=== PATIENT | female | born 1975 | race American Indian/Alaskan Native ===

== ENCOUNTER 2018-02-09 06:10 | Observation (INO) | payer OTHER ==
--- NOTE | 2018-02-07 12:18 | Anesthesia Consultation ---
Anesthesia Consult and Med Hx Date of service: 02/07/18 - Airway Anesthetic Teeth Evaluation: Good ROM Head & Neck: Adequate Mental/Hyoid Distance: Adequate Mallampati Class: Class I Intubation Access Assessment: Good - Pulmonary Exam CTA: Yes - Cardiac Exam Cardiac Exam: RRR - Pre-Operative Health Status ASA Pre-Surgery Classification: ASA2 Proposed Anesthetic Plan: General - Central Nervous System Hx Psychiatric Problems: No - Hematic Hx Anemia: Yes - Other Systems Hx Cancer: No
[2018-02-07 12:24] LABS: Basophils % (Auto) 0.4 % (0.0-1.8); Eosinophils % (Auto) 0.4 % (0.0-4.3); Hematocrit 33.4 % (30.3-42.9); Hemoglobin 10.2 gm/dl (10.1-14.3); Lymphocytes # (Auto) 1.7 K/mm3 (1.2-5.4); Lymphocytes % (Auto) 32.3 % (13.4-35.0); Mean Corpuscular HGB Conc 31 % (30-34); Mean Corpuscular Hemoglobin 21 pg (28-32); Mean Corpuscular Volume 69 fl (79-97); Monocytes # (Auto) 0.2 K/mm3 (0.0-0.8); Monocytes % (Auto) 4.7 % (0.0-7.3); Platelet Count 234 K/mm3 (140-440); Red Blood Count 4.88 M/mm3 (3.65-5.03); Red Cell Distribution Width 22.2 % (13.2-15.2)
[~2018-02-09 06:10] MED LIST: MARCAINE 0.5% INFILTRATI NR; VERSED IV NR; XYLOCAINE 1% 20 mL INFILTRATI NR
--- NOTE | 2018-02-09 06:20 | History and Physical Report ---
History of Present Illness Date of examination: 02/09/18 Date of admission: 02/09/2018 Chief complaint: heavy menses History of present illness: 42y/o with symptomatic uterine fibroids and dysfunctional uterine bleeding.Pelvic ultrasound demonstrated a 6.5cm myoma. She reports heavy menses with clots and pain. She has elected to undergo definitive surgical management. Past History Past Medical History: other (fibroids; anxiety) Past Surgical History: other (laparoscopy for ectopic ) - Obstetrical History : 7 Para: 1 Hx # Term Pregnancies: 1 Number of Pregnancies: 0 Spontaneous Abortions: 3 Induced : 3 Number of Living Children: 1 Medications and Allergies Allergies Allergy/AdvReac Type Severity Reaction Status Date / Time No Known Allergies Allergy Unverified 02/02/18 14:29 Home Medications Medication Instructions Recorded Confirmed Last Taken Type No Known Home Medications [No 02/02/18 02/02/18 Unknown History Reported Home Medications] Active Meds: Active Medications Bupivacaine HCl (Marcaine 0.5%) 20 ml INFILTRATI PREOP NR Stop: 02/09/18 23:59 Lactated Ringer's (Lactated Ringers) 1,000 mls @ 100 mls/hr IV DIRECT HAIR Cefazolin Sodium (Ancef/Sterile Water 2 Gm/20 Ml) 2 gm in 20 mls @ 80 mls/hr IV PREOP HAIR; Protocol Lidocaine (Xylocaine 1% 20 Ml) 10 ml INFILTRATI PREOP NR Stop: 02/09/18 23:59 Midazolam HCl (Versed) 2 mg IV PREOP NR Stop: 02/09/18 23:59 Review of Systems All systems: negative Genitourinary: vaginal bleeding, pelvic pain - Vital Signs Vital signs: Vital Signs Temp Pulse Resp BP 99.1 F 60 18 110/78 02/07/18 11:50 02/07/18 11:50 02/07/18 11:50 02/07/18 11:50 Temp Pulse Resp BP Pulse Ox 99.1 F 60 18 110/78 02/07/18 11:50 02/07/18 11:50 02/07/18 11:50 02/07/18 11:50 - Physical Exam Breasts: Positive: deferred Cardiovascular: Regular rate Lungs: Positive: Clear to auscultation Abdomen: Positive: normal appearance Results Result Diagrams: 02/07/18 11:55 All other labs normal. Assessment and Plan - Patient Problems (1) Leiomyoma Current Visit: Yes Status: Acute Plan to address problem: scheduled for a robotic hysterectomy (2) DUB (dysfunctional uterine bleeding) Current Visit: Yes Status: Acute
[2018-02-09] MEDS ORDERED: NACL BACTERIOSTATIC INFILTRATI ONE (06:30)
[2018-02-09] MEDS: LACTATED RINGERS 1,000 ML IV SCH ×2 (06:51→15:08)
[2018-02-09] MEDS ORDERED: ANCEF/STERILE WATER 2 GM/20 ML 2 GM/20 ML SYRINGE IV SCH (07:00)
[2018-02-09] MEDS ORDERED: NEOSPORIN GU IR ONE ×2 (07:27→09:00)
[2018-02-09] MEDS ORDERED: GELFOAM POWDER 1GM MM ONE ×2 (07:33→09:01)
[2018-02-09] MEDS ORDERED: THROMBIN (BOVINE) TP ONE ×2 (07:33→09:01)
[2018-02-09] MEDS ORDERED: XYLOCAINE MPF 2% ONE (07:42)
[2018-02-09] MEDS ORDERED: ZEMURON IV ONE ×2 (07:42→09:25)
[2018-02-09] MEDS ORDERED: DILAUDID ONE ×2 (07:44→10:21)
[2018-02-09] MEDS ORDERED: DIPRIVAN 10 MG/ML IV ONE (07:44)
[2018-02-09] MEDS ORDERED: MARCAINE 0.5% 30 ML INFILTRATI ONE (07:53)
[2018-02-09] MEDS ORDERED: TRANSDERM-SCOP TD NR (08:00)
[2018-02-09] MEDS ORDERED: PEPCID IV NR (08:00)
[2018-02-09] MEDS ORDERED: NEO SYNEPHRINE/NS Syringe(OR USE) IV ONE (08:18)
[2018-02-09] MEDS ORDERED: ZOFRAN ONE (08:59)
[2018-02-09] MEDS ORDERED: DECADRON ONE (08:59)
[2018-02-09] MEDS ORDERED: MARCAINE 0.5% INFILTRATI ONE (09:00)
[2018-02-09] MEDS ORDERED: NACL 0.9% IR ONE ×2 (09:00)
[2018-02-09] MEDS ORDERED: LACTATED RINGERS 1,000 ML ONE (09:02)
[2018-02-09] MEDS ORDERED: ROBINUL ONE (09:29)
--- NOTE | 2018-02-09 10:00 | Operative Report ---
Operative Report Operative Report: Date of surgery: 02/09/2018 Preoperative diagnoses: Symptomatic uterine fibroids; dysfunctional uterine bleeding Postoperative diagnoses: Same as above Procedure: Robotic hysterectomy; bilateral salpingectomy Surgeon: Sweta Pugh M.D. Drum Reel Cutter: David Mazariegos Anesthesia: Gen. endotracheal anesthesia Estimated blood loss: 50 mL Pathology: Uterus, cervix, leiomyoma, tubes Indication: 42-year-old with a history of symptomatic uterine fibroids and dysfunctional uterine bleeding. Undergo definitive surgical management Procedure: The patient was taken to the operating room and given general endotracheal anesthesia without complication. She is prepped and draped in a normal sterile fashion. A bivalve speculum was placed in the patient's vagina and a single- tooth tenaculum placed on the anterior lip of the cervix. The uterus was sounded with the uterine sound. A [employer] uterine manipulator was placed in the bivalve speculum was then removed. Attention was then turned to the patient's abdomen where a millimeter supra umbilical skin incision was then made. A Veress needle was placed and peritoneal entry was verified water-filled syringe. Insufflation of the peritoneal cavity was performed with CO2 gas. The 12 mm trocar was then placed under direct visualization. An additional 8 mm trocar was placed on the patient's left and right lateral side just opposite of the supraumbilical trocar. An additional 5 mm right lateral trocar was then placed as the accessory port. The patient was then placed in steep Trendelenburg. The da Yan robot was then engaged. A fenestrated forcep was placed in arm 2 and a vessel sealer was placed in arm 1. The surgeon then transferred to the surgical console. General survey revealed an enlarge fibroid uterus. A portion of the right fallopian tube was surgically removed. The left fallopian tube was normal along with the ovaries. The mesosalpinx was then isolated on the right. The vessel sealer was used to coagulate the mesosalpinx which was then transected. The tube was transected from the ovary. The tubo-ovarian ligament was then coagulated and transected. The round ligament was then coagulated and transected also. The vesicouterine peritoneum was then entered from the patient's right side. The uterine vessels were then coagulated with the vessel sealer. The vessels were then transected . Attention was then turned to the patient's left side where the tubo-ovarian ligament and mesosalpinx were again isolated coagulated and transected. The vesical peritoneum was then entered from the left and joined in the midline. Peritoneum was reflected off of the lower uterine segment. Uterine vessels were then coagulated and then transected. A myomectomy had to be performed in order to decompress the uterus. An incision was made in the serosa. The leiomyoma was then grasped with a tenaculum. The leiomyoma was excised with the monopolar scissors. The uterus had to be further bivalved and a portion of the uterus to facilitate decompression. The blood supply to the uterus was adequately contained, a posterior colpotomy was made. The V care ring was visualized. Posterior colpotomy was created with the monopolar scissors. The incision was continued circumferentially until anterior colpotomy was made. The cervix and uterus were amputated from the vaginal cuff. The uterus was then removed along with the tubes bilaterally, and the leiomyoma through the vagina and a warm laparotomy sponge was placed and maintain the pneumoperitoneum. The vaginal cuff was then closed in a running fashion with V lock suture. Irrigation of the pelvis was performed. Gelfoam with thrombin was applied to the incision. The supraumbilical 12 mm trocar site was closed with the Piter Olmos device. The skin was then reapproximated with 4-0 Monocryl. The tissue was sent to pathology which included the cervix and uterus. The patient was then successfully extubated. She was then taken to the recovery room in stable condition. All sponge laps and needle counts were correct x2.
[2018-02-09] MEDS ORDERED: NARCAN 0.4 MG/1 ML IV PRN (10:04)
[2018-02-09] MEDS ORDERED: PERCOCET 5/325 PO PRN (10:06)
[2018-02-09] MEDS ORDERED: ZOFRAN IV PRN (10:06)
[2018-02-09] MEDS ORDERED: MILK OF MAGNESIA PO PRN (10:06)
[2018-02-09] MEDS ORDERED: TYLENOL PO PRN (10:06)
[2018-02-09] MEDS: DILAUDID IV PRN ×2 (10:25→10:35)
[2018-02-09] MEDS ORDERED: D5LR 1,000 ML IV SCH (11:00)
[2018-02-09] MEDS ORDERED: MORPHINE PCA 30MG/30ML IV SCH (11:00)
[2018-02-09] MEDS ORDERED: MOTRIN PO PRN (12:04)
--- NOTE | 2018-02-09 14:27 | Anesthesia Day of Surgery ---
Anesthesia Day of Surgery - Day of Surgery Patient Examined: Yes Patient H&P Reviewed: Yes Patient is NPO: Yes
--- NOTE | 2018-02-09 14:27 | Post Anesthesia Evaluation ---
- Post Anesthesia Evaluation Patient Participated: Yes Airway Patent: Yes Stable Respiratory Function: Yes Nausea/Vomiting: No Temp > 96.8F: Yes Pain Manageable: Yes Adequeate Hydration: Yes Anesthesia Complications: No
[2018-02-09] MEDS: TORADOL IV SCH ×2 (15:04→20:43)
[2018-02-10] MEDS: LACTATED RINGERS 1,000 ML IV SCH (00:02)
[2018-02-10] MEDS: TORADOL IV SCH ×3 (01:00→13:34)
[2018-02-10 05:40] LABS: Hematocrit 26.7 % (30.3-42.9); Hemoglobin 8.2 gm/dl (10.1-14.3)
--- NOTE | 2018-02-10 08:35 | Progress Note ---
Assessment and Plan A/P POD #1 s/p robotic hysterectomy Doing well +flatus tolerating po pain well controlled d/c home today Subjective - Subjective Date of service: 02/10/18 Principal diagnosis: s/p robotic hysterectomy Patient reports: appetite normal, voiding normally, pain well controlled, flatus , ambulating normally Objective - Vital Signs Latest vital signs: Vital Signs Temp Pulse Resp BP BP Pulse Ox 02/10/18 04:00 98.2 F 57 L 18 97/54 02/10/18 00:00 98.0 F 59 L 20 115/62 02/09/18 20:00 99.3 F 77 20 112/71 02/09/18 18:00 18 02/09/18 16:50 98.2 F 63 20 110/63 02/09/18 11:40 97.9 F 65 14 130/74 130/74 100 02/09/18 11:20 68 15 137/67 100 02/09/18 11:05 97.2 F L 68 15 138/64 100 02/09/18 10:55 15 02/09/18 10:50 62 16 148/73 100 02/09/18 10:35 68 16 145/72 100 02/09/18 10:25 14 02/09/18 10:20 62 16 145/74 100 02/09/18 10:15 68 15 135/75 100 02/09/18 10:10 73 14 128/68 100 02/09/18 10:05 97.4 F L 78 16 131/66 100 Intake and Output 02/09/18 02/10/18 02/10/18 23:59 07:59 15:59 Intake Total 600 1130 Output Total 900 800 Balance -300 330 Intake: IV 890 Lactated Ringers 1,000 ml 890 @ 100 mls/hr IV DIRECT HAIR Rx#:[id number] Oral 600 240 Output: Urine 900 800 Indwelling Catheter 900 800 Other: Total, Intake Amount 240 240 Total, Output Amount 900 800 Voiding Method Indwelling Catheter - Exam Breasts: Present: normal Cardiovascular: Present: Regular rate, Normal S1 Lungs: Present: Clear to auscultation, Normal air movement Abdomen: Present: normal appearance, soft, normal bowel sounds. Absent: distention, tenderness, guarding Vulva: both: normal Extremities: Present: normal Deep Tendon Reflex Grade: Normal +2 Incision: Present: normal, dry, intact - Labs Labs: Abnormal lab results 02/10/18 Range/Units 05:07 Hgb 8.2 L (10.1-14.3) gm/dl Hct 26.7 L D (30.3-42.9) %
--- NOTE | 2018-02-10 08:38 | Discharge Summary ---
Providers - Providers Date of Admission: 02/09/18 10:06 Date of discharge: 02/10/18 Attending physician: ROXANNE BADILLO Primary care physician: DONNA DUFFY Hospitalization Reason for admission: other (Robotic hysterectomy secondary to fibroids ) Incision: normal, dry, intact Hospital course: patient had a robotic hysterectomy yesterday/. Patient did well post op. vss. AFebrile. Pain controlled. Discharged home in stable condition. Will f/u with Dr. Davis Condition at discharge: Good Disposition: DC-01 TO HOME OR SELFCARE Plan - Discharge Medications Prescriptions: Docusate Sodium [Colace] 100 mg PO BID PRN #60 capsule PRN Reason: Constipation Ibuprofen [Motrin] 800 mg PO Q8HR PRN #60 tablet PRN Reason: Pain Oxycodone HCl/Acetaminophen [Percocet 7.5/325 mg] 1 each PO Q6HR PRN #45 tablet PRN Reason: Pain - Provider Discharge Summary Activity: routine, no sex for 6 weeks, no strenuous exercise Diet: routine Instructions: routine Additional instructions: [] Smoking cessation referral if applicable(refer to patient education folder for contact #) [] Refer to [facility] Booklet Call your doctor immediately for: * Fever > 100.5 * Heavy vaginal bleeding ( >1 pad per hour) * Severe persistent headache * Shortness of breath * Reddened, hot, painful area to leg or breast * Drainage or odor from incision. * Keep incision clean and dry at all times and follow doctor's instructions regarding bathing/showering - Follow up plan Follow up: ROXANNE BADILLO MD [Staff Physician] - 03/03/18
[2018-02-10 16:52] VITALS: BP 129/57
== END 2018-02-10 17:00 | disposition home or self-care (01) ==
LOC: OR 06:10 → OB 10:06
PROVIDERS: ADMIT Obstetrics & Gynecology; ATTEND Obstetrics & Gynecology
DX: D25.9 Leiomyoma of uterus, unspecified (principal); N93.8 Other specified abnormal uterine and vaginal bleeding
CPT/HCPCS: 36415; 58554; 84703; 85014; 85018; 85025; 86850; 86900; 86901; 88307; 96374; 96375; 96376; A4217; A4649; G0378; J0690; J1100; J1170; J1885; J2250; J2270; J2370; J2405; J2704; J7120; S2900